=== PATIENT | male | born 1935 | race Caucasian/White ===

== ENCOUNTER 2016-10-04 11:31 | Day surgery (SDC) | payer MEDICARE, OTHER ==
[2016-10-04] MEDS ORDERED: LIDOCAINE HCL 10 APPL CARTRIDGE TP ONE (12:53)
[2016-10-04 15:19] VITALS: BP 132/74
== END 2016-10-04 11:32 | disposition home or self-care (01) ==
LOC: AMB 11:31
PROVIDERS: ATTEND Urology
PROC: 0TJB8ZZ Inspection of Bladder, Via Natural or Artificial Opening Endoscopic (ICD-10-PCS; 2016-10-04)
PROC: 3E1K88X Irrigation of Genitourinary Tract using Irrigating Substance, Via Natural or Artificial Opening Endoscopic, Diagnostic (ICD-10-PCS; principal; 2016-10-04 12:30)
DX: N40.1 Benign prostatic hyperplasia with lower urinary tract symptoms (principal); N13.8 Other obstructive and reflux uropathy; R31.0 Gross hematuria; I10 Essential (primary) hypertension; E78.00 Pure hypercholesterolemia, unspecified; E66.01 Morbid (severe) obesity due to excess calories; Z68.37 Body mass index [BMI] 37.0-37.9, adult; Z87.891 Personal history of nicotine dependence